=== PATIENT | female | born 1985 | race Caucasian/White ===

== ENCOUNTER 2016-09-04 06:07 | Emergency (ER) | payer OTHER ==
[2016-09-04 06:56] LABS: BASOPHIL % 0.1 % (0-2); PLATELET COUNT 209 x10^3mcL (130-400); RED CELL DISTRIBUTION WIDTH 13.6 % (11.5-14.5)
[2016-09-04 07:02] LABS: CALCIUM 8.5 mg/dL (8.5-10.1); CARBON DIOXIDE 28.6 mmol/L (21-32); CHLORIDE SERUM 104 mmol/L (98-107); GFR1 > 60 mL/min; GLUCOSE SERUM 128 mg/dL (74-106); POTASSIUM SERUM 3.9 mmol/L (3.5-5.1); SODIUM SERUM 141 mmol/L (136-145)
[2016-09-04 07:07] LABS: ALBUMIN 3.8 g/dL (3.4-5.0); ALKALINE PHOSPHATASE 101 U/L (46-116); ALT/SGPT 108 U/L (14-59); AST/SGOT 53 U/L (15-37); BILIRUBIN TOTAL 0.29 mg/dL (0.20-1.00); LIPASE 145 IU/L (73-393); TOTAL PROTEIN, SERUM 6.9 g/dL (6.4-8.2)
[2016-09-04 07:50] VITALS: BP 127/92
== END 2016-09-04 08:07 | disposition home or self-care (01) ==
LOC: ED 06:07
PROVIDERS: Emergency Medicine
DX: K76.0 Fatty (change of) liver, not elsewhere classified (principal); M79.7 Fibromyalgia; E11.9 Type 2 diabetes mellitus without complications; E03.9 Hypothyroidism, unspecified; Z79.899 Other long term (current) drug therapy
CPT/HCPCS: Q0092

== ENCOUNTER 2016-09-20 05:08 | Emergency (ER) | payer OTHER ==
[2016-09-20 06:30] VITALS: BP 147/115
== END 2016-09-20 06:45 | disposition home or self-care (01) ==
LOC: ED 05:08
DX: J03.90 Acute tonsillitis, unspecified (principal); M79.7 Fibromyalgia; E11.9 Type 2 diabetes mellitus without complications; E03.9 Hypothyroidism, unspecified; K76.0 Fatty (change of) liver, not elsewhere classified; Z79.4 Long term (current) use of insulin

== ENCOUNTER 2016-10-04 16:32 | Emergency (ER) | payer OTHER ==
[2016-10-04 21:38] VITALS: BP 136/91
== END 2016-10-04 21:38 | disposition home or self-care (01) ==
LOC: ED 16:32
DX: M54.6 Pain in thoracic spine (principal); R42 Dizziness and giddiness; R07.89 Other chest pain; E11.9 Type 2 diabetes mellitus without complications; M79.7 Fibromyalgia; F31.9 Bipolar disorder, unspecified; K76.0 Fatty (change of) liver, not elsewhere classified; F41.9 Anxiety disorder, unspecified; M32.9 Systemic lupus erythematosus, unspecified
CPT/HCPCS: 72072

== ENCOUNTER 2016-10-07 19:19 | Emergency (ER) | payer OTHER ==
[2016-10-07 20:27] VITALS: BP 148/106
== END 2016-10-07 20:27 | disposition home or self-care (01) ==
LOC: ED 19:19
DX: F07.81 Postconcussional syndrome (principal); M79.7 Fibromyalgia; E11.9 Type 2 diabetes mellitus without complications; Z79.899 Other long term (current) drug therapy

== ENCOUNTER 2016-12-06 20:33 | Inpatient (IN) | payer OTHER ==
[~2016-12-06] VITALS: Ht 175.3 cm; Wt 133.8 kg
[2016-12-06 21:38] LABS: BASOPHIL % 0.1 % (0-2); CALCIUM 8.7 mg/dL (8.5-10.1); CARBON DIOXIDE 28.8 mmol/L (21-32); CHLORIDE SERUM 102 mmol/L (98-107); CREATININE SERUM 0.9 mg/dL (0.6-1.0); GFR1 > 60 mL/min; GLUCOSE SERUM 117 mg/dL (74-106); PLATELET COUNT 189 x10^3mcL (130-400); POTASSIUM SERUM 3.4 mmol/L (3.5-5.1); RED CELL DISTRIBUTION WIDTH 13.6 % (11.5-14.5); SODIUM SERUM 140 mmol/L (136-145)
[2016-12-06 21:57] LABS: ALBUMIN 3.6 g/dL (3.4-5.0); ALKALINE PHOSPHATASE 148 U/L (46-116); ALT/SGPT 116 U/L (14-59); AST/SGOT 69 U/L (15-37); BILIRUBIN TOTAL 0.5 mg/dL (0.20-1.00); TOTAL PROTEIN, SERUM 7.8 g/dL (6.4-8.2)
[2016-12-06 22:14] LABS: UA SPECIFIC GRAVITY 1.025 (1.005-1.035); microscopic required? YES; urine erythrocyte NEGATIVE (NEGATIVE)
[2016-12-06 22:18] LABS: CK-MB < 0.5 ng/mL (0-3.6); CREATINE KINASE 106 U/L (26-192)
[2016-12-07] MEDS ORDERED: ATA25 PO (01:10)
[2016-12-07] MEDS ORDERED: KLO0.5 PO (01:10)
[2016-12-07] MEDS ORDERED: TEGRETOL200 MG PO ×2 (01:11)
[2016-12-07] MEDS ORDERED: LATUDA40 M1 PO (01:12)
[2016-12-07] MEDS ORDERED: PEPCID20 MG PO (01:13)
[2016-12-07] MEDS ORDERED: SYNTHROID0.2 MG PO (01:13)
[2016-12-07 03:35] VITALS: BP 138/71
[2016-12-07 03:40] LABS: PHOSPHOROUS 3.2 mg/dL (2.5-4.9)
[2016-12-07 03:46] LABS: CHOLESTEROL/HDL RATIO 5.8; T3 TOTAL 0.73 ng/mL
[2016-12-07 03:48] LABS: FREE THYROXINE INDEX 2.3 ug/dL (1.4-4.5); T4(THYROXINE) 7.5 ug/dL (4.7-13.3)
[2016-12-07 04:27] LABS: FREE T4 0.97 ng/dL (0.76-1.46)
[2016-12-07 05:27] VITALS: BP 131/80
[2016-12-07 06:51] LABS: CALCIUM 9.1 mg/dL (8.5-10.1); CARBON DIOXIDE 26.4 mmol/L (21-32); CHLORIDE SERUM 102 mmol/L (98-107); CREATININE SERUM 0.8 mg/dL (0.6-1.0); GFR1 > 60 mL/min; GLUCOSE SERUM 185 mg/dL (74-106); POTASSIUM SERUM 4.3 mmol/L (3.5-5.1); SODIUM SERUM 141 mmol/L (136-145)
[2016-12-07 10:00] VITALS: BP 137/85
[2016-12-07 12:16] VITALS: BP 112/67
[2016-12-07 17:39] VITALS: BP 140/92
[2016-12-07 20:41] VITALS: BP 118/71
[2016-12-08 05:33] VITALS: BP 145/88
[2016-12-08 06:44] LABS: BASOPHIL % 0.2 % (0-2); PLATELET COUNT 199 x10^3mcL (130-400); RED CELL DISTRIBUTION WIDTH 13.3 % (11.5-14.5)
[2016-12-08 07:12] LABS: CALCIUM 8.8 mg/dL (8.5-10.1); CARBON DIOXIDE 26.7 mmol/L (21-32); CHLORIDE SERUM 106 mmol/L (98-107); CREATININE SERUM 0.9 mg/dL (0.6-1.0); GFR1 > 60 mL/min; GLUCOSE SERUM 140 mg/dL (74-106); PHOSPHOROUS 4.2 mg/dL (2.5-4.9); POTASSIUM SERUM 3.5 mmol/L (3.5-5.1); SODIUM SERUM 143 mmol/L (136-145)
[2016-12-08 09:01] VITALS: BP 134/87
[2016-12-08] MEDS ORDERED: ZIT250 PO (11:14)
[2016-12-08] MEDS ORDERED: MUCINEX600 MG PO (11:30)
[2016-12-08 11:39] VITALS: BP 133/89
== END 2016-12-08 13:20 | disposition home or self-care (01) | DRG 193 ==
LOC: ED 20:33 → DU 12-07 02:24 → MU 12-07 17:21 → DU 12-07 23:19
PROVIDERS: Emergency Medicine; ADMIT Family Medicine
DX: J18.0 Bronchopneumonia, unspecified organism (principal); J96.01 Acute respiratory failure with hypoxia; N17.0 Acute kidney failure with tubular necrosis; Z68.41 Body mass index [BMI] 40.0-44.9, adult; R65.10 Systemic inflammatory response syndrome (SIRS) of non-infectious origin without acute organ dysfunction; M79.7 Fibromyalgia; F31.9 Bipolar disorder, unspecified; M32.9 Systemic lupus erythematosus, unspecified; F12.10 Cannabis abuse, uncomplicated; E03.9 Hypothyroidism, unspecified; K44.9 Diaphragmatic hernia without obstruction or gangrene; K76.0 Fatty (change of) liver, not elsewhere classified; E87.6 Hypokalemia; F41.9 Anxiety disorder, unspecified; E11.9 Type 2 diabetes mellitus without complications; E66.01 Morbid (severe) obesity due to excess calories; E78.5 Hyperlipidemia, unspecified; Z98.891 History of uterine scar from previous surgery
CPT/HCPCS: 36600; 82962; 83880; 84439; 94150; J0456; J0696; J1956; J2930; J3480; J7030; J7620; J7626; Q0092; Q9967

== ENCOUNTER → 2016-12-10 | Outpatient (CLI) | payer OTHER ==
[~2016-12-10] MED LIST: ATA25 PO; KLO0.5 PO; LATUDA40 M1 PO; MUCINEX600 MG PO; PEPCID20 MG PO; SYNTHROID0.2 MG PO; TEGRETOL200 MG PO; ZIT250 PO
== END | disposition home or self-care (01) ==
LOC: RD 15:32
DX: J18.9 Pneumonia, unspecified organism (principal)

== ENCOUNTER 2017-03-24 19:22 | Emergency (ER) | payer OTHER ==
[~2017-03-24] VITALS: Ht 175.3 cm; Wt 142.4 kg
[2017-03-24 22:51] VITALS: BP 136/70
== END 2017-03-24 22:51 | disposition home or self-care (01) ==
LOC: ED 19:22
DX: N64.4 Mastodynia (principal); R07.89 Other chest pain; M79.7 Fibromyalgia; E11.9 Type 2 diabetes mellitus without complications; E07.9 Disorder of thyroid, unspecified; L93.2 Other local lupus erythematosus; Z79.899 Other long term (current) drug therapy
CPT/HCPCS: 76641; J1885

== ENCOUNTER → 2017-08-11 | Outpatient (CLI) | payer OTHER | END | disposition home or self-care (01) | LOC: US 15:39 | PROC: BW40ZZZ Ultrasonography of Abdomen (ICD-10-PCS; principal; 2017-08-11) | DX: R11.2 Nausea with vomiting, unspecified (principal) ==

== ENCOUNTER 2017-09-28 08:35 | Day surgery (SDC) | payer OTHER ==
[~2017-09-28] VITALS: Ht 172.7 cm; Wt 136.1 kg
[2017-09-28 08:49] VITALS: BP 127/68
[2017-09-28 11:58] VITALS: BP 110/65
== END 2017-09-28 11:15 | disposition home or self-care (01) ==
LOC: GI 08:35 → OR 10:30 → GI 10:30
PROVIDERS: Internal Medicine Gastroenterology
PROC: 0DB58ZX Excision of Esophagus, Via Natural or Artificial Opening Endoscopic, Diagnostic (ICD-10-PCS; principal; 2017-09-28 09:30)
PROC: 0DB68ZX Excision of Stomach, Via Natural or Artificial Opening Endoscopic, Diagnostic (ICD-10-PCS; 2017-09-28 09:30)
DX: K29.70 Gastritis, unspecified, without bleeding (principal); K44.9 Diaphragmatic hernia without obstruction or gangrene; K21.9 Gastro-esophageal reflux disease without esophagitis
CPT/HCPCS: 43235; J1200; J1610; J2250; J2310; J3010; J3490

== ENCOUNTER 2017-11-26 20:59 | Emergency (ER) | payer OTHER ==
[~2017-11-26] VITALS: Ht 172.7 cm; Wt 129.3 kg
[2017-11-26 21:13] VITALS: Ht 172.7 cm; Wt 129.3 kg
[2017-11-27 00:13] LABS: CARBON DIOXIDE 25.2 mmol/L (21-32); CHLORIDE SERUM 105 mmol/L (98-107); CREATININE SERUM 0.8 mg/dL (0.6-1.0); GFR1 > 60 mL/min; GLUCOSE SERUM 131 mg/dL (74-106); POTASSIUM SERUM 3.5 mmol/L (3.5-5.1); SODIUM SERUM 140 mmol/L (136-145)
[2017-11-27 00:17] LABS: ALBUMIN 3.5 g/dL (3.4-5.0); ALKALINE PHOSPHATASE 110 U/L (46-116); ALT/SGPT 54 U/L (14-59); AST/SGOT 24 U/L (15-37); BILIRUBIN TOTAL 0.2 mg/dL (0.20-1.00); LIPASE 331 IU/L (73-393); TOTAL PROTEIN, SERUM 6.6 g/dL (6.4-8.2)
[2017-11-27 00:37] LABS: UA SPECIFIC GRAVITY >=1.030 (1.005-1.035); microscopic required? YES; urine erythrocyte NEGATIVE (NEGATIVE)
[2017-11-27 01:07] LABS: BASOPHIL % 0.1 % (0-2); PLATELET COUNT 297 x10^3mcL (130-400); RED CELL DISTRIBUTION WIDTH 14.4 % (11.5-14.5)
[2017-11-27 03:20] VITALS: BP 110/67
== END 2017-11-27 03:20 | disposition home or self-care (01) ==
LOC: ED 20:59
PROVIDERS: Emergency Medicine
DX: R10.2 Pelvic and perineal pain (principal); R11.0 Nausea; R42 Dizziness and giddiness; I10 Essential (primary) hypertension; E11.9 Type 2 diabetes mellitus without complications
CPT/HCPCS: 36415; 84439; J1885; J2270; Q0162

== ENCOUNTER 2017-11-27 22:33 | Emergency (ER) | payer OTHER ==
[~2017-11-27] VITALS: Ht 175.3 cm; Wt 128.4 kg
[2017-11-27 22:53] VITALS: Ht 175.3 cm; Wt 128.4 kg
[2017-11-28 00:08] LABS: BASOPHIL % 0.4 % (0-2); PLATELET COUNT 296 x10^3mcL (130-400)
[2017-11-28 00:10] LABS: RED CELL DISTRIBUTION WIDTH 15.8 % (11.5-14.5)
[2017-11-28 00:23] LABS: CALCIUM 8.7 mg/dL (8.5-10.1); CARBON DIOXIDE 26.8 mmol/L (21-32); CHLORIDE SERUM 104 mmol/L (98-107); CREATININE SERUM 0.8 mg/dL (0.6-1.0); GFR1 > 60 mL/min; GLUCOSE SERUM 97 mg/dL (74-106); POTASSIUM SERUM 3.7 mmol/L (3.5-5.1); SODIUM SERUM 140 mmol/L (136-145)
[2017-11-28 00:28] LABS: ALKALINE PHOSPHATASE 116 U/L (46-116); ALT/SGPT 60 U/L (14-59); AST/SGOT 32 U/L (15-37); BILIRUBIN TOTAL 0.3 mg/dL (0.20-1.00); LIPASE 373 IU/L (73-393)
[2017-11-28 00:50] LABS: UA SPECIFIC GRAVITY >=1.030 (1.005-1.035); urine erythrocyte NEGATIVE (NEGATIVE)
[2017-11-28 00:51] LABS: microscopic required? YES
[2017-11-28 03:43] VITALS: BP 125/71
== END 2017-11-28 03:43 | disposition home or self-care (01) ==
LOC: ED 22:33
PROVIDERS: Emergency Medicine
DX: K62.5 Hemorrhage of anus and rectum (principal); R10.30 Lower abdominal pain, unspecified; R10.12 Left upper quadrant pain; R19.7 Diarrhea, unspecified
CPT/HCPCS: 36415

== ENCOUNTER 2018-01-28 15:15 | Emergency (ER) | payer OTHER ==
[~2018-01-28] VITALS: Ht 175.3 cm; Wt 122.5 kg
[2018-01-28 15:26] VITALS: Ht 175.3 cm; Wt 122.5 kg
[2018-01-28 15:51] LABS: BASOPHIL % 0.1 % (0-2); PLATELET COUNT 288 x10^3mcL (130-400)
[2018-01-28 15:52] LABS: RED CELL DISTRIBUTION WIDTH 15.4 % (11.5-14.5)
[2018-01-28 16:12] LABS: FREE T4 1.27 ng/dL (0.76-1.46); FREE THYROXINE INDEX 3.4 ug/dL (1.4-4.5); T4(THYROXINE) 10.1 ug/dL (4.7-13.3)
[2018-01-28 16:31] LABS: CARBON DIOXIDE 25.3 mmol/L (21-32); CHLORIDE SERUM 104 mmol/L (98-107); CREATININE SERUM 0.7 mg/dL (0.6-1.0); GFR1 > 60 mL/min; GLUCOSE SERUM 161 mg/dL (74-106); POTASSIUM SERUM 3.9 mmol/L (3.5-5.1); SODIUM SERUM 140 mmol/L (136-145)
[2018-01-28 16:35] LABS: ALBUMIN 3.6 g/dL (3.4-5.0); ALKALINE PHOSPHATASE 123 U/L (46-116); ALT/SGPT 35 U/L (14-59); AST/SGOT 17 U/L (15-37); BILIRUBIN TOTAL 0.2 mg/dL (0.20-1.00); CHOLESTEROL 156 mg/dL (<200); CHOLESTEROL/HDL RATIO 3.1; HDL CHOLESTEROL 50 mg/dL (40-60); LIPASE 174 IU/L (73-393); TOTAL PROTEIN, SERUM 7.2 g/dL (6.4-8.2); TRIGLYCERIDES 159 mg/dL (<150)
[2018-01-28 17:02] LABS: T3 TOTAL 1.04 ng/mL
[2018-01-28 17:03] LABS: microscopic required? YES; urine erythrocyte NEGATIVE (NEGATIVE)
[2018-01-28 17:15] VITALS: BP 124/59
== END 2018-01-28 17:15 | disposition home or self-care (01) ==
LOC: ED 15:15
PROVIDERS: Specialist
DX: H81.10 Benign paroxysmal vertigo, unspecified ear (principal); I10 Essential (primary) hypertension; E11.9 Type 2 diabetes mellitus without complications; F41.9 Anxiety disorder, unspecified; F32.9 Major depressive disorder, single episode, unspecified; K76.0 Fatty (change of) liver, not elsewhere classified
CPT/HCPCS: 82962; 83880; 84439; J7030

== ENCOUNTER 2018-05-08 10:52 | Emergency (ER) | payer OTHER ==
[~2018-05-08] VITALS: Ht 172.7 cm; Wt 126.6 kg
[2018-05-08 11:04] VITALS: BP 116/75; Ht 172.7 cm; Wt 126.6 kg
== END 2018-05-08 11:24 | disposition home or self-care (01) ==
LOC: ED 10:52
DX: J02.9 Acute pharyngitis, unspecified (principal); R59.0 Localized enlarged lymph nodes; I10 Essential (primary) hypertension; E11.9 Type 2 diabetes mellitus without complications; F41.9 Anxiety disorder, unspecified; F31.9 Bipolar disorder, unspecified; M79.7 Fibromyalgia

== ENCOUNTER 2018-06-22 00:08 | Emergency (ER) | payer OTHER ==
[~2018-06-22] VITALS: Ht 172.7 cm; Wt 127.5 kg
[2018-06-22 00:21] VITALS: BP 138/82; Ht 172.7 cm; Wt 127.5 kg
== END 2018-06-22 01:41 | disposition left against medical advice (07) ==
LOC: ED 00:08
DX: Z53.21 Procedure and treatment not carried out due to patient leaving prior to being seen by health care provider (principal)

== ENCOUNTER 2018-08-05 18:05 | Emergency (ER) | payer OTHER ==
[~2018-08-05] VITALS: Ht 172.7 cm; Wt 126.6 kg
[2018-08-05 20:41] LABS: microscopic required? NO
[2018-08-05 20:45] LABS: BASOPHIL % 0.1 % (0-2); PLATELET COUNT 314 x10^3mcL (130-400)
[2018-08-05 20:47] LABS: UA SPECIFIC GRAVITY <=1.005 (1.005-1.035); urine erythrocyte NEGATIVE (NEGATIVE)
[2018-08-05 20:48] LABS: RED CELL DISTRIBUTION WIDTH 14.9 % (11.5-14.5)
[2018-08-05 21:04] LABS: CALCIUM 8.7 mg/dL (8.5-10.1); CARBON DIOXIDE 29.7 mmol/L (21-32); CHLORIDE SERUM 101 mmol/L (98-107); CREATININE SERUM 0.8 mg/dL (0.6-1.0); GFR1 > 60 mL/min; GLUCOSE SERUM 124 mg/dL (74-106); POTASSIUM SERUM 3.6 mmol/L (3.5-5.1); SODIUM SERUM 138 mmol/L (136-145)
[2018-08-05 21:08] LABS: ALBUMIN 4.1 g/dL (3.4-5.0); ALKALINE PHOSPHATASE 92 U/L (46-116); ALT/SGPT 30 U/L (14-59); AST/SGOT 16 U/L (15-37); BILIRUBIN TOTAL 0.27 mg/dL (0.20-1.00); TOTAL PROTEIN, SERUM 7.4 g/dL (6.4-8.2)
[2018-08-05 21:47] VITALS: BP 134/84
== END 2018-08-05 21:47 | disposition home or self-care (01) ==
LOC: ED 18:05
PROVIDERS: Emergency Medicine
DX: N83.201 Unspecified ovarian cyst, right side (principal); I10 Essential (primary) hypertension; E11.9 Type 2 diabetes mellitus without complications; F31.9 Bipolar disorder, unspecified; M79.7 Fibromyalgia
CPT/HCPCS: 36415; 87491; 87591; J1885

== ENCOUNTER 2018-08-07 17:00 | Emergency (ER) | payer OTHER ==
[~2018-08-07] VITALS: Ht 172.7 cm; Wt 127.0 kg
[2018-08-07 17:15] VITALS: Ht 172.7 cm; Wt 127.0 kg
[2018-08-07 18:49] VITALS: BP 138/78
== END 2018-08-07 18:49 | disposition left against medical advice (07) ==
LOC: ED 17:00
DX: R11.0 Nausea (principal); R53.83 Other fatigue; R53.1 Weakness; N83.201 Unspecified ovarian cyst, right side; I10 Essential (primary) hypertension; E11.9 Type 2 diabetes mellitus without complications; F31.9 Bipolar disorder, unspecified; M79.7 Fibromyalgia; M32.9 Systemic lupus erythematosus, unspecified; Z13.89 Encounter for screening for other disorder
CPT/HCPCS: 82962; 87804; Q0162

== ENCOUNTER 2019-01-01 20:37 | Emergency (ER) | payer OTHER ==
[~2019-01-01] VITALS: Ht 175.3 cm; Wt 133.8 kg
[2019-01-01 20:41] VITALS: BP 120/85; Ht 175.3 cm; Wt 133.8 kg
== END 2019-01-01 22:30 | disposition left against medical advice (07) ==
LOC: ED 20:37
DX: Z53.21 Procedure and treatment not carried out due to patient leaving prior to being seen by health care provider (principal)

== ENCOUNTER 2019-01-20 17:17 | Emergency (ER) | payer OTHER ==
[~2019-01-20] VITALS: Ht 175.3 cm; Wt 132.9 kg
[2019-01-20 17:43] VITALS: Ht 175.3 cm; Wt 132.9 kg
[2019-01-20 20:36] VITALS: BP 112/93
== END 2019-01-20 20:36 | disposition home or self-care (01) ==
LOC: ED 17:17
DX: J01.90 Acute sinusitis, unspecified (principal); I10 Essential (primary) hypertension; E11.9 Type 2 diabetes mellitus without complications; F41.9 Anxiety disorder, unspecified; F32.9 Major depressive disorder, single episode, unspecified; Z98.890 Other specified postprocedural states
CPT/HCPCS: 82962

== ENCOUNTER 2019-07-06 19:47 | Emergency (ER) | payer OTHER ==
[~2019-07-06] VITALS: Ht 175.3 cm; Wt 133.8 kg
[2019-07-06 20:00] VITALS: BP 139/85; Ht 175.3 cm; Wt 133.8 kg
[2019-07-06 20:54] LABS: BASOPHIL % 0.1 % (0-2); PLATELET COUNT 310 x10^3mcL (130-400); RED CELL DISTRIBUTION WIDTH 13.6 % (11.5-14.5)
[2019-07-06 20:58] LABS: CALCIUM 8.4 mg/dL (8.5-10.1); CARBON DIOXIDE 28.6 mmol/L (21-32); CHLORIDE SERUM 104 mmol/L (98-107); CREATININE SERUM 0.8 mg/dL (0.6-1.0); GFR1 > 60 mL/min; GLUCOSE SERUM 146 mg/dL (74-106); POTASSIUM SERUM 3.8 mmol/L (3.5-5.1); SODIUM SERUM 138 mmol/L (136-145)
[2019-07-06 21:03] LABS: ALBUMIN 3.5 g/dL (3.4-5.0); ALKALINE PHOSPHATASE 83 U/L (46-116); ALT/SGPT 31 U/L (14-59); AST/SGOT 16 U/L (15-37); BILIRUBIN TOTAL 0.24 mg/dL (0.20-1.00); TOTAL PROTEIN, SERUM 6.7 g/dL (6.4-8.2)
[2019-07-06 21:36] LABS: FREE THYROXINE INDEX 1.8 ug/dL (1.4-4.5); T4(THYROXINE) 6.7 ug/dL (4.7-13.3)
[2019-07-06 22:29] LABS: T3 TOTAL 1.04 ng/mL
== END 2019-07-06 21:44 | disposition left against medical advice (07) ==
LOC: ED 19:47
PROVIDERS: Specialist
DX: R42 Dizziness and giddiness (principal); R53.83 Other fatigue; R11.0 Nausea; I10 Essential (primary) hypertension; E11.9 Type 2 diabetes mellitus without complications
CPT/HCPCS: 36415; 84439